=== PATIENT | female | born 1960 | race African-American/Black ===

== ENCOUNTER 2020-02-07 12:49 | Emergency (ER) | payer OTHER ==
[~2020-02-07] VITALS: Ht 154.9 cm; Wt 45.0 kg
[2020-02-07 12:55] VITALS: BP 111/47
[2020-02-07] MEDS ORDERED: CARV3.1231 PO (13:04)
[2020-02-07] MEDS ORDERED: FERR-82 PO (13:04)
== END 2020-02-07 15:24 | disposition left against medical advice (07) ==
LOC: EMS 12:49
DX: R42 Dizziness and giddiness (principal); Z53.21 Procedure and treatment not carried out due to patient leaving prior to being seen by health care provider
CPT/HCPCS: 93005

== ENCOUNTER 2020-03-01 12:50 | Emergency (ER) | payer OTHER ==
[~2020-03-01] VITALS: Ht 157.5 cm; Wt 44.1 kg
[~2020-03-01 12:50] MED LIST: CARV3.1231 PO; FERR-82 PO
[2020-03-01 13:04] VITALS: BP 93/71
[2020-03-01 14:38] LABS: COVID AG,FIA SOURCE NASOPHARYNGEAL
== END 2020-03-01 14:24 | disposition home or self-care (01) ==
LOC: EMS 12:50
DX: Z20.822 Contact with and (suspected) exposure to COVID-19 (principal); I10 Essential (primary) hypertension
CPT/HCPCS: 87426; 99283; C9803; U0003